=== PATIENT | male | born 1960 | race Caucasian/White ===

== ENCOUNTER 2024-09-09 10:20 | Outpatient (CLI) | payer OTHER, SELFPAY | END 2024-09-09 10:21 | disposition home or self-care (01) | LOC: NFLDREF 09-11 07:34 | PROVIDERS: PCP Family Medicine; Referring Provider Family Medicine; Visit Provider Family Medicine | DX: E78.5 Hyperlipidemia, unspecified (principal); Z12.5 Encounter for screening for malignant neoplasm of prostate | CPT/HCPCS: 80053; 80061; G0103 ==

== ENCOUNTER 2024-10-01 07:05 | Outpatient (CLI) | payer OTHER, SELFPAY ==
--- NOTE | 2024-10-01 09:31 | W.ANESCHARGE ---
Anesthesia Charges Start Date/Time Anesthesia Start Date: 10/01/24 Anesthesia Start Time: 08:16 Stop Date/Time Anesthesia Stop Date: 10/01/24 Anesthesia Stop Time: 09:26 Coding CPT Codes CPT Codes: ANES LWR INTST NDSC NOS - 64087 ([id number]) P3 - PATIENT W/SEVERE SYS DISEASE, QX - CONTROL OPERATOR SVC W/ MD MED DIRECTION, QK - SILVER SPRAY WORKER 2-4 CNCRNT ANES PROC
--- NOTE | 2024-10-01 09:33 | W.ANESCHARGE ---
Anesthesia Charges Start Date/Time Anesthesia Start Date: 10/01/24 Anesthesia Start Time: 08:16 Stop Date/Time Anesthesia Stop Date: 10/01/24 Anesthesia Stop Time: 09:26 Coding CPT Codes CPT Codes: ANES LWR INTST NDSC NOS - 81058 ([id number]) QK - CHARGING CRANE OPERATOR 2-4 CNCRNT ANES PROC, QX - FINISH FILER SVC W/ MED DIRECTION, P3 - PATIENT W/SEVERE SYS DISEASE
== END 2024-10-01 07:06 | disposition home or self-care (01) ==
PROVIDERS: PCP Family Medicine; Visit Provider Surgery
DX: Z12.11 Encounter for screening for malignant neoplasm of colon (principal); D12.3 Benign neoplasm of transverse colon; D12.8 Benign neoplasm of rectum; K57.30 Diverticulosis of large intestine without perforation or abscess without bleeding
CPT/HCPCS: 00811; 45385; 88305; J2704

== ENCOUNTER 2024-10-01 14:50 | Emergency (ER) | payer OTHER, SELFPAY ==
--- OUTSIDE RECORDS SUMMARY | 2024-10-01 14:53 | XMS_ITS | Clinical Summary ---
Author Organization [facility] Address [address] [place] [address] Care Team Providers Care Senior Naval Parachutist Name Role Phone Alberto Rodrigez MD Primary Care Provider [phone] Allergies Active Allergy Reactions Criticality Noted Date Comments Quinine Sulfate Hepatic Dysfunction 10/02/2018 Medications nitroglycerin (NITROSTAT) 0.4 mg sublingual tabletIndicati ons:STEMI involving left circumflex coronary artery (HC) Place 1 tablet under the tongue every 5 minutes if needed. 25 tablet 2 0 Active ezetimibe (ZETIA) 10 mg tabletIndicati ons:Atherogeni c dyslipidemia,E levated lipoprotein(a) Take 1 Tablet (10 mg) by mouth once daily. Further refills at upcoming appointment on August 27, 2024. 90 Tablet 4 Active rosuvastatin (CRESTOR) 40 mg tabletIndicati ons:Mixed hyperlipidemia ,STEMI involving left circumflex coronary artery (HC) Take 1 Tablet (40 mg) by mouth at bedtime. Further refills at upcoming appointment on August 27, 2024 90 Tablet 4 Active clopidogreL (PLAVIX) 75 mg tabletIndicati ons:Coronary artery disease involving nikolski coronary artery of nikolski heart without angina pectoris Take 1 Tablet (75 mg) by mouth once daily. 90 Tablet 3 5 Active lisinopriL (PRINIVIL; ZESTRIL) 2.5 mg tabletIndicati ons:STEMI involving left circumflex coronary artery (HC) Take 1 Tablet (2.5 mg) by mouth once daily. 90 Tablet 3 5 Active lisinopriL (PRINIVIL; ZESTRIL) 2.5 mg tabletIndicati ons:STEMI involving left circumflex coronary artery (HC) Take 1 Tablet (2.5 mg) by mouth once daily. 90 Tablet 3 4 09/11/19 25 Discontin ued(Reord er (E-cancel not sent)) clopidogreL (PLAVIX) 75 mg tabletIndicati ons:Coronary artery disease involving nikolski coronary artery of nikolski heart without angina pectoris Take 1 Tablet (75 mg) by mouth once daily. Further refills at upcoming appointment on 08/27/24. 30 Tablet 5 09/11/19 25 Discontin ued(Reord er (E-cancel not sent)) Active Problems Problem Noted Date Diagnosed Date Elevated lipoprotein(a) - 88.2 (NL < 30) 019 STEMI involving left circumflex coronary artery 06/01/2018 Atherogenic dyslipidemia + High Lpa - 88.2 06/01 Hypertension Encounters Date Type Department Care Team Description 09/30/2024 Telephone [facility] [address] [place] [address] Wyatt Mccormick MD, PhD Medication Management (Re: plavix) 09/11/2024 Telephone [facility] [address] [place] [address] Wyatt Mccormick MD, PhD Refill Request (Clopidogrel (Plavix) & Lisinopril (Prinvil; Zestril)) 08/27/2024 2:45 PM INDUSTRIAL COMMERCIAL GROUNDSKEEPER Orders Only [facility] [address] [place] [address] Lab, [place] Lab 08/27/2024 2:00 PM INDUSTRIAL COMMERCIAL GROUNDSKEEPER Office Visit [facility] [address] [place] [address] Wyatt Mccormick MD, PhD Follow Up (Follow up STEMI involving left circumflex coronary artery- yearly visit ) 08/27/2024 Travel 08/19/2024 10:00 AM INDUSTRIAL COMMERCIAL GROUNDSKEEPER Ancillary Procedure [facility] [address] [place] [address] 08/19/2024 Travel 08/14/2024 Refill [facility] [address] [place] [address] Jerrod Lee MD Refill Request 07/19/2024 Refill [facility] [address] [place] [address] Jerrod Lee MD Refill Request (ezetimibe) from Last 3 Months Immunizations Immunization Administration Dates Next Due COVID-19 vaccine ([employer]-J&J) FLORENCIA FRY Influenza, IIV4 06/21/2017,09/10/2015 MMR 12/16/2015,09/16/2015 Tdap 09/10/2015 Family History Medical History Relation Name Comments Obesity Brother Renal failure/E SRD/HD patient Pneumonia Father Glaucoma Mother Relation Name Status Comments Brother Father Mother Social History Tobacco Use Types Packs/Day Years Used Date Smoking Tobacco: Never Smokeless Tobacco: Never Tobacco Cessation:Counseling Given: Yes Alcohol Use Standard Drinks/Week Comments Yes 0 (1 standard drink = 0.6 oz pure alcohol) noted 08/27/24 - 1-2 glass of wine per week PHQ-2 Answer Date Recorded PHQ-2 Score 0 09/24/2018 Financial Resource Strain Answer Date R ecorded Difficulty of Paying Living Expenses Not on file 07/24/2021 Difficulty of Paying Living Expenses Not on file 07/24/2021 Sex and Gender Information Value Date Recorded Sex Assigned at Male 10/03/2020 8:03 AM INDUSTRIAL COMMERCIAL GROUNDSKEEPER Legal Sex Male 8:32 AM INDUSTRIAL COMMERCIAL GROUNDSKEEPER Gender Identity Male 10/03/2020 8:03 AM INDUSTRIAL COMMERCIAL GROUNDSKEEPER Sexual Orientation Straight 10/03/2020 8: 03 AM INDUSTRIAL COMMERCIAL GROUNDSKEEPER Obstetrics History Last Filed Vital Signs Vital Sign Reading Time Taken Comments Blood Pressure 112/74 08/27/2024 1:56 PM INDUSTRIAL COMMERCIAL GROUNDSKEEPER Pulse 55 08/27/2024 1:56 PM INDUSTRIAL COMMERCIAL GROUNDSKEEPER Temperature 36.5 C (97.7 F) 08/24/2022 10:59 AM INDUSTRIAL COMMERCIAL GROUNDSKEEPER Respiratory Rate 16 12/18/2018 9:08 AM CDT Oxygen Saturation 100% 08/27/2024 1:56 PM INDUSTRIAL COMMERCIAL GROUNDSKEEPER Inhaled Oxygen Concentration - - Weight 77.8 kg (171 lb 9.6 oz) 08/27/2024 1:56 P M INDUSTRIAL COMMERCIAL GROUNDSKEEPER Height 188 cm (6' 2) 04/29/2021 10:20 AM CDT Body Mass Index 22.03 04/29/2021 10:20 AM CDT Plan of Treatment Health Maintenance Due Date Last Done Comments HIV for age 15-65 12/09/1975 Hepatitis C screening for ag e 18-79 1978 Pneumococcal series for age 50+ (1 of 2 - PCV) 12/09/1979 Colonoscopy through age 75 2005 Zoster (shingles) series for age 50+ (1 of 2) 2010 Depression screening for age 12+ 06/22/2019 06/22/20 18, 06/19/2018 RSV vaccine for adults or (1 - Risk 60-74 years 1-dose series) 2020 BMI (ht and wt on same day) for age 18+ 04/29/2022 04/29/2021, 04/28/2020, 06/14/2019, Additional history exists Influenza Vaccine (#1) 2024 06/21/2017, 2015 Tetanus booster 09/10/2025 09/10/2015 Lipids for age 45-75 08/27/2029 08/27/2024, 08/10/2022, 10/19/2021, Additional history exists Tdap Completed 09/10/2015 COVID-19 vaccine series Completed 06/24/20 24, 06/03/2023, 10/03/2020 Procedures Procedure Name Priority Date/Time Associated Diagnosis Comments LIPID PANEL Routine 08/27/2024 2:18 PM INDUSTRIAL COMMERCIAL GROUNDSKEEPER STEMI involving left circumflex coronary artery (HC) Mixed hyperlipidemia ECHO TTE LIMITED WO CONTRAST W COLOR W LTD DOPPLER Routine 08/19/2024 10:42 AM INDUSTRIAL COMMERCIAL GROUNDSKEEPER STEMI involving left circumflex coronary artery (HC) from Last 3 Months Results * LIPID PANEL (08/27/2024 2:18 PM INDUSTRIAL COMMERCIAL GROUNDSKEEPER) Pathologist [facility] CHOLESTEROL, TOTAL 132 <200 mg/dL [facility] HDL CHOLESTEROL 53 > OR = 40 mg/dL [facility] TRIGLYCERIDES 58 <150 mg/dL [facility] LDL-CHOLESTEROL 66 mg/dL (calc) [facility] Comment: Reference range: <100 Desirable range <100 mg/dL for primary prevention; <70 mg/dL for patients with CHD or diabetic patients with > or = 2 CHD risk factors. LDL-C is now calculated using the Lonnie calculation, which is a validated novel method providing better accuracy than the Friedewald equation in the estimation of LDL-C. Kevin SS et al. CHER. 2013;310(19): 7568-4060 (http://education.Sopheon/faq/TWU100) CHOL/HDLC RATIO 2.5 <5.0 (calc) [facility] NON HDL CHOLESTEROL 79 <130 mg/dL (calc) [facility] Comment: For patients with diabetes plus 1 major ASCVD risk factor, treating to a non-HDL-C goal of <100 mg/dL (LDL-C of <70 mg/dL) is considered a therapeutic option. Blood BLOOD SPECIMEN / Unknown 08/27/2024 2:18 PM INDUSTRIAL COMMERCIAL GROUNDSKEEPER 08/27/2024 2:19 PM INDUSTRIAL COMMERCIAL GROUNDSKEEPER Wyatt Mccormick MD, PhD CHEMISTRY Fin al Result Roll20 [facility] [address] [place] [address], [place] [phone] [facility] [address] [place] [address] * ECHO TTE LIMITED WO CONTRAST W COLOR W LTD DOPPLER (08/19/2024 10:42 AM INDUSTRIAL COMMERCIAL GROUNDSKEEPER) Pathologist [facility] EJECTION FRACTION 55 % LVEDD 6.0 cm Anatomical Region Laterality Modality Ultrasound 08/19/2024 10:0 9 AM INDUSTRIAL COMMERCIAL GROUNDSKEEPER Narrative 08/19/2024 11:20 AM INDUSTRIAL COMMERCIAL GROUNDSKEEPER ECHOCARDIOGRAM MARLI DE LA ROSA : 1960 63 years Study Date: 08/19/2024 10:09:26 AM Gender: M BP: 121/75 mmHg Height: 188.00 cm BSA: 2.02 m Weight: 76.00 kg Tech: [facility] Referring MD: JERROD LEE Site: [facility] Reading Location: Mobile OP Patient Location: Outpatient. Procedure: Limited 2D , Color Doppler and Limited Spectral Doppler. Indication for study: STEMI involving left circumflex coronary artery (HC) Cardiac Rhythm: Sinus bradycardia.Study quality: Good. Final Impressions: Limited Echocardiogram performed 1. Mildly increased left ventricular size, normal wall thickness, low normal global systolic function, calculated EF of 55 %. 2. Hypokinesis of inferior and inferolateral wall segments. 3. Right ventricular cavity size is normal, global systolic RV function is normal. 4. The ascending aorta is dilated with a maximal diameter of 4.1 cm. 5. The aortic sinus is dilated with a maximal diameter of 4.6 cm. Comparison Compared to prior exam of 08/21/2023: Imaging quality is improved, LV cavity mildly dilated with low-normal LVEF and similar WMA distribution. Chamber Sizes and Function Mildly increased left ventricular size, normal wall thickness, low normal global systolic function, calculated EF of 55 %. Right ventricular cavity size is normal, global systolic RV function is normal. RV wall thickness is normal. The sinus of Valsalva is dilated. The ascending aorta is dilated. Valves, RV Pressures and Diastolic Function The aortic valve is normal in structure and trileaflet, no stenosis and no regurgitation. The mitral valve is normal in structure, mild mitral regurgitation. MEASUREMENTS AND CALCULATIONS 2-D Measurements and LV Function: LVID (d) 6.0 cm Planimetered EF 55 % LVID (s) 4.2 cm LV FS% (2D) 31 % IVS (d) 0.8 cm HR 45 bpm LVPW (d) 0.9 cm Ao Sinus 4.6 cm Asc Ao 4.1 cm . This study was interpreted by an [facility] accredited facility. Final Procedure Note Carmelo Swanson MD - 08/19/2024 ECHOCARDIOGRAM MARLI DE LA ROSA : 1960 63 years Study Date: 08/19/2024 10:09:26 AM Gender: M BP: 121/75 mmHg Height: 188.00 cm BSA: 2.02 m Weight: 76.00 kg Tech: [facility] Referring MD: JERROD LEE Site: [facility] Reading Location: Mobile OP Patient Location: Outpatient. Procedure: Limited 2D , Color Doppler and Limited Spectral Doppler. Indication for study: STEMI involving left circumflex coronary artery(HC) Cardiac Rhythm: Sinus bradycardia.Study quality: Good. Final Impressions: Limited Echocardiogram performed 1. Mildly increased left ventricular size, normal wall thickness, lownormal global systolic function, calculated EF of 55 %. 2. Hypokinesis of inferior and inferolateral wall segments. 3. Right ventricular cavity size is normal, global systolic RV functionis normal. 4. The ascending aorta is dilated with a maximal diameter of 4.1 cm. 5. The aortic sinus is dilated with a maximal diameter of 4.6 cm. Comparison Compared to prior exam of 08/21/2023: Imaging quality is improved, LV cavity mildly dilated with low-normal LVEFand similar WMA distribution. Chamber Sizes and Function Mildly increased left ventricular size, normal wall thickness, low normalglobal systolic function, calculated EF of 55 %. Right ventricular cavitysize is normal, global systolic RV function is normal. RV wall thicknessis normal. The sinus of Valsalva is dilated. The ascending aorta isdilated. Valves, RV Pressures and Diastolic Function The aortic valve is normal in structure and trileaflet, no stenosis and noregurgitation. The mitral valve is normal in structure, mild mitralregurgitation. MEASUREMENTS AND CALCULATIONS 2-D Measurements and LV Function: LVID (d) 6.0 cm Planimetered EF 55 % LVID (s) 4.2 cm LV FS% (2D) 31 % IVS (d) 0.8 cm HR 45 bpm LVPW (d) 0.9 cm Ao Sinus 4.6 cm Asc Ao 4.1 cm . This study was interpreted by an [facility] accredited facility. Final us Jerrod Lee MD ECHO ORD Final Result from Last 3 Months Insurance [employer] Advance Directives * Full Code (Latest Code Status on File) Date Activated Date Inactivated Comments 06/01/2018 11:23 AM 06/03/2018 2:59 PM Care Teams Senior Naval Parachutist Relationship Specialty Start Date End Date Alberto Rodrigez MD [address] [place] [address] PCP - General Family Practice 06/01/18
--- OUTSIDE RECORDS SUMMARY | 2024-10-01 14:53 | XMS_ITS | Clinical Summary ---
Author Organization [facility] Address [address] [place] [address] Care Team Providers Care Social Media Executive Name Role Phone Elsewhere, Pcp Primary Care Provider Unavailabl e Source Comments Patient records contain information from all sites at [facility]. For routine questions regarding patient records, call [phone] during business hours, M-F 8:00 AM - 5:00 PM Central Time. Record requests for emergency care only can be directed to [phone] at any time.[facility] Allergies Active Allergy Reactions Criticality Noted Date Comments Quinine Sulfate Other (see comments),Hepatic Failure High 12/22/2001 Hepatic failure Tetanus Vaccines And Toxoid Other (see comments) 07/11/2023 Tetanus vaccine Medications nitroglycerin (NITROSTAT) 0.[address] 1 tablet under the tongue every 5 minutes if needed. 05/26/2020 Active MULTIVITAMIN ORAL Take 2 tablets by mouth daily. Takes 2 gummies daily Active ezetimibe (ZETIA) 10 mg tablet Take 1 tablet by mouth daily. 08/30/2022 Active lisinopriL (PRINIVIL,ZESTR [place]) 2.5 mg tablet Take 1 tablet by mouth daily. 08/30/2022 Active rosuvastatin (CRESTOR) 40 mg tablet Take 1 tablet by mouth at bedtime. 08/30/2022 Active clopidogreL (PLAVIX) 75 mg tablet Take 1 tablet (75 mg total) by mouth daily. 10/18/2023 Active Active Problems Problem Noted Date Diagnosed Date Hypertensive Heart Disease Without Heart Failure 09/04/2023 Clonic Hemifacial Spasm Left 08/30/2023 Dyslipidemia NOS 06/01/2018 ST Elevation Myocardial Infa rction Involving Left Circumflex Coronary Artery 06/01/2018 Family History Medical History Relation Name Comments Kidney disease Brother López De La Rosa Born with one kidney, then that failed at age 45ish, dialysis for 15 years up until in 2018 Obesity Brother López De La Rosa Sleep apnea Brother López De La Rosa Other cancer Father Victor M De La Rosa Bladder cancer Coronary artery disease Father's Brother 1 Frank yip Coronary artery disease Father's Brother 2 Travis Brian glien Arthritis Mother Naina Zavalaine Ringlien Hyperlipidemia Mother Naina Zavalaine Ringlien Hypertension Mother Naina Zavalaine Ringlien Thyroid disease Mother Naina Zavalaine Ringlien ADD Son Micky De La Rosa Relation Name Status Comments Brother López De La Rosa Father Victor M De La Rosa Father's Brother 1 Frank De La Rosa Father's Brother 2 Travis De La Rosa Mother Naina De La Rosa Son Micky De La Rosa Social History Tobacco Use Types Packs/Day Years Used Date Smoking Tobacco: Never Passive Smoke Exposure: Never Smokeless Tobacco: Never Tobacco Cessation:Counseling Given: Not Answered Alcohol Use Standard Drinks/Week Comments Yes 6 (1 standard drink = 0.6 oz pur e alcohol) [facility] Utilities Answer Date Recorded In the past 12 months has [facility] Vestiage, gas, oil, or water Anctu threatened to shut off services in your home? No 10/10/2023 Humiliation, Afraid, Rape, and Kick questionnair e Answer Date Recorded Within the last year, have y ou been afraid of your partner or ex-partner? No 10/10/2023 Within the last year, have y ou been humiliated or emotionally abused in other ways by your partner or ex-partner? No Within the last year, have y ou been kicked, hit, slapped, or otherwise physically hurt by your partner or ex-partner? No 10/10/2023 Within the last year, have y ou been raped or forced to have any kind of sexual activity by your partner or ex-partner? No 10/10/2023 PHQ-2 Answer Date Recorded PHQ-2 Score 0 07/12/2023 Exercise Vital Sign Answer Date Recorde d On average, how many days pe r week do you engage in moderate to strenuous exercise (like a brisk walk)? 5 days 07/09/2023 On average, how many minutes do you engage in exercise at this level? 40 min 07/09/2023 Hunger Vital Sign Answer Date Recorded Within the past 12 months, y ou worried that your food would run out before you got the money to buy more. Never true 10/10/19 24 Within the past 12 months, t he food you bought just didn't last and you didn't have money to get more. Never true 10/10/2023 PRAPARE - Transportation Answer Date Re corded In the past 12 months, has l ack of transportation kept you from medical appointments or from getting medications? No 09/21 In the past 12 months, has l ack of transportation kept you from meetings, work, or from getting things needed for daily living? No 10/10/2023 Depression Answer Date Recor ded PHQ-9 Total Score (max 27) 0 07/12 Nutrition Answer Date Recorded Nutrition: EVOO Fat Source Unknown 07/09 On average, how many serving s of fruits and vegetables do you eat per day (serving size is equal to 1 cup or approximately the size of a tennis ball)? 3-5 07/09/2023 Dental Answer Date Recorded Dental: Regular Dentist Yes 07/09/20 Employment Answer Date Recorded Employment status Employed and actively working without restrictions 07/09/2023 Housing Stability Answer Date Recorded What is your living situation today? I have a [facility] place to live 10/10/2023 Sex and Gender Information Value Date Recorded Sex Assigned at Male 07/09/2023 11:14 AM REGIONAL EDUCATION COORDINATOR Legal Sex Male 1:30 PM CDT Gender Identity Male 07/09/2023 11:14 AM REGIONAL EDUCATION COORDINATOR Sexual Orientation Straight 07/09/2023 11 :14 AM REGIONAL EDUCATION COORDINATOR Last Filed Vital Signs Vital Sign Reading Time Taken Comments Blood Pressure 120/65 10/12/2023 7:45 AM CDT Pulse 57 10/12/2023 7:45 AM CDT Temperature 36.8 C (98.2 F) 10/12/2023 7:45 AM CDT Respiratory Rate 14 10/12/2023 7:45 AM CDT Oxygen Saturation 96% 10/12/2023 7:45 AM CDT Inhaled Oxygen Concentration - - Weight 77.3 kg (170 lb 6.7 oz) 10/11/2023 9:24 A M CDT Height 190.5 cm (6' 3) 10/10/2023 6:23 AM CDT Body Mass Index 21.3 10/10/2023 6:23 AM CDT Plan of Treatment Health Maintenance Due Date Last Done Comments CT Colonography 1960 Cologuard 1960 Colonoscopy 1960 Colorectal Cancer Screening 1960 FIT 1960 HIV Screening 1960 Hepatitis C Screening 1960 Pneumococcal vaccine (50+ years) (1 of 1 - PCV) 2010 Zoster Vaccines (1 of 2) 2010 Creatinine Level (Kidney Function Test) 08/10/2023 08/10/2022, 10/19/2021, 04/16/2021, Additional history exists Potassium Level 08/10/2023 08/10/2022, 03/2 03/2022, 04/16/2021, Additional history exists COVID-19 Vaccine ( season) 2024 06/03/2023, 06/15/2022, 06/28/2021, Additional history exists Influenza Vaccine (#1) 2024 , 06/15/2022, 06/22/2021, Additional history exists Depression Screening (Annual PHQ-2) 07/24/2024 Office Visit for Blood Pressure Check / Re-check 10/04/2024 10/05/2023 Sodium Level 10/09/2024 10/10/2023, 07/24, 10/19/2021, Additional history exists Fasting Glucose for Diabetes Screening 10/09/2026 10/10/2023, 08/10/2022, 10/19/2021, Additional history exists Lipid (Cholesterol) Screening 08/10/2027 08/10/2022, 10/19/2021, 04/16/2021, Additional history exists IPV Vaccines Aged Out No longer eligi ble based on patient's age to complete this topic Medical Devices Implanted Type Area Sales Support Advisor Device Identifier Shelf Expiration Date Model / Serial / Lot Cardiac Stent Cardiac Stent Coronary Description:1 stent in coron abbi artery Hardware E.G. Pins/Screws/R ods Hardware e.g. pins/screws /rods Right: Knee [place] [employer] T[employer] 1x1 - [id number] Implanted:Qty : 1 on 10/10/2023 by Carmelo Arora M.D. at [facility] Hardware e.g. pins/screws /rods peerTransfer 32-448 / / Plt Mtr Cmf Str 2h 12 - [id number] Implanted:Qty : 3 on 10/10/2023 by Carmelo Arora M.D. at [facility] Hardware e.g. pins/screws /rods Left: Cranial Depuy Synthes 503.06 2 / / Scrw Ti Mtr Slv 1.55x2.55x4 - [id number] Implanted:Qty : 6 on 10/10/2023 by Carmelo Arora M.D. at [facility] Hardware e.g. pins/screws /rods Left: Cranial Depuy Synthes 503.10 4.01 / / Grft Drg 4x4 - [id number] Implanted:Qty : 1 on 10/10/2023 by Carmelo Arora M.D. at [facility] Mesh or Patch Guevara 04/05/2028 [id number] / / [id number] Procedures Procedure Name Priority Date/Time Associated Diagnosis Comments GLUCOSE, WHOLE BLOOD STAT 10/10/2023 9:21 AM CDT SODIUM, B STAT 10/10/2023 9:21 AM CDT from Last 3 Months or Most Recently Relevant to Health Maintenance Results * Sodium, B (10/10/2023 9:21 AM CDT) Sodium, B 141 135 - 145 mmol/L 10/10/2023 9:24 AM CDT STMA Blood (Blood, Arterial Line) 10/10/2023 9:21 AM CDT 10/10/2023 9:21 AM CDT us Nancy Pineda M.D. LAB BLOOD NON ADD-ON Final Re sult [facility] [address] [place] [address], [facility] [address] [place] [address] * Glucose, Whole Blood (10/10/2023 9:21 AM CDT) Glucose 118 70 - 140 mg/dL 10/10/2023 9:24 AM CDT STMA Blood (Blood, Arterial Line) 10/10/2023 9:21 AM CDT 10/10/2023 9:21 AM CDT Nancy Pineda M.D. LAB BLOOD ADD-ON Final Result Performing Organization Address City/[facility] Co de Phone Number [facility] [address] [place] [address], [facility] [address] [place] [address] from Last 3 Months or Most Recently Relevant to Health Maintenance Insurance [facility] EM[employer]OYEE Advance Directives For more information, please contact: [phone] * Full Code (Latest Code Status on File) Date Activated Date Inactivated Comments 10/10/2023 12:56 PM 10/12/2023 2:05 PM Question Answer Comments Full Code: Not Discussed Due to: Patient not available * Full Code Date Activated Date Inactivated Comments 10/10/2023 6:37 AM 10/10/2023 12:56 PM Question Answer Comments Full Code: Not Discussed Due to: Patient not available Care Teams Social Media Executive Relationship Specialty Start Date End Date Elsewhere, Pcp PCP - General Internal Medicine 10/03/23
[2024-10-01 14:56] VITALS: BP 121/67; PULSE 76; RESP 18; TEMP 39.1; O2SAT 96; BMI 21.6
--- NOTE | 2024-10-01 15:00 | ED.GENADULT ---
HPI - General Adult General Chief complaint: Fever Stated complaint: Post-Colonoscopy issues Time Seen by Provider: 10/01/24 14:51 History of Present Illness HPI narrative: Patient presents to the emergency department complaining of a fever. Patient had a colonoscopy this morning at about 0815 and he was resting at home after when he noticed he had a fever . Patient had the chills and minor joint aches. Fever was 102.4 at home. He returned to the ER per his instructions to do so. 63-year-old man presenting to the emergency department with concern of fever and chills following colonoscopy this morning. I do review records of colonoscopy this morning, biopsies were taken. No complications noted. They note that colon was ?curvy?. Also recollecting brother with post colonoscopy complications apparently with splenic bleed. Was feeling well about 20 minutes after procedure. Has no abdominal pain now. Not feeling lightheaded. Adjust this afternoon began to feel chilled was shaking briefly. Went out into the sun and was feeling better in that regard but because fever mentioned as a concern postprocedural, presenting to the emergency department. They did measure temperature of 102.4?. On arrival here 102.4 temporal. Related Data Home Medications ?Medication ?Instructions ?Recorded ?Confirmed clopidogrel 75 mg tablet (Plavix) 75 mg PO QDAY 10/24/23 10/01/24 ezetimibe 10 mg tablet 10 mg PO QDAY 10/24/23 10/01/24 lisinopril 2.5 mg tablet 2.5 mg PO DAILY 10/24/23 10/01/24 multivitamin 1 tab PO QDAY 10/24/23 10/01/24 nitroglycerin 0.4 mg sublingual 0.4 mg sublingual Q5M PRN 10/24/23 10/01/24 tablet rosuvastatin 40 mg tablet 40 mg PO DAILY 10/24/23 10/01/24 Previous Rx's ?Medication ?Instructions ?Recorded peg 3350-electrolytes 236 240 ml PO Q10M #4,000 mL 10/24/23 gram-22.74 gram-6.74 gram-5.86 gram solution (Golytely) peg 3350-electrolytes 236 240 ml PO Q10M #4,000 mL 09/11/24 gram-22.74 gram-6.74 gram-5.86 gram solution (Golytely) Allergies Allergy/AdvReac Type Severity Reaction Status Date / Time quinine Allergy Severe Elevated Verified 10/01/24 15:03 Liver Enzymes & Low BP Review of Systems Status of ROS: Reports: 6 or more systems reviewed and unremarkable except as noted in History and below [facility] Medical History Hemifacial spasm ?G51.39 - Clonic hemifacial spasm, unspecified (ICD-10) Colon polyp (05/09/13) ?K63.5 - Polyp of colon (ICD-10) History of ST elevation myocardial infarction (STEMI) ?I25.2 - Old myocardial infarction (ICD-10) Pesticide exposure (1977) ?Z77.098 - Contact with and (suspected) exposure to other hazardous, chiefly nonmedicinal, chemicals (ICD-10) Surgical History History of arthroscopy of right knee (09/20/21) ?Z98.890 - Other specified postprocedural states (ICD-10) History of coronary artery stent placement (06/01/18) ?Z95.5 - Presence of coronary angioplasty implant and graft (ICD-10) Salivary gland obstruction ?K11.8 - Other diseases of salivary glands (ICD-10) Family History Brother Myocardial infarction, Onset Age: 59 Renal failure Coronary artery disease Father Bladder cancer Pulmonary embolism DVT (deep venous thrombosis) Uncle Coronary artery disease Social History What is your current living situation?: I presently have a place to live Problems where you live: no known problems In the past 12 months, utilities in danger of being shut off: no In past 12 months, lack of transportation kept you from medical appts, meetings, work, or getting things needed for daily living: no In the past 12 mos, have been you worried that your food would run out before you had money to buy more?: never true In the past 12 mos, the food you bought just didn't last and you didn't have money to buy more?: never true How often does anyone, including family, friends and others, physically hurt you: never How often does anyone, including family, friends and others, insult or talk down to you: never How often does anyone, including family, friends and others, threaten you with harm: never How often does anyone, including family, friends and others, scream or curse at you: never Exam Narrative: Exam Narrative: Pleasant. NAD. Breathing easily. Cranial nerves 2-12 intact. Skin is warm and dry. Is well-perfused peripherally. Oropharynx is moist and not erythematous. Lungs are clear. Heart in regular rate and rhythm without murmur rub or gallop. Abdomen with present bowel sounds. Flat and nontender maybe with particularly deep palpation slightly uncomfortable in the right upper abdomen. Certainly no peritoneal signs. Const: Vital Signs, click to edit/add: Vital Signs - 24 hr 10/01/24 15:40 10/01/24 16:46 10/01/24 17:08 Temperature 101.9 F H 100.4 F H 100.4 F H Documenting provider has reviewed patient's vital signs: yes Course Vital Signs Vital signs: Initial Vital Signs Temperature 102.4 F H 10/01/24 14:56 Temperature Source Temporal Artery Scan 10/01/24 14:56 Pulse Rate 76 10/01/24 14:56 Pulse Rhythm Regular 10/01/24 14:56 Pulse Strength 3+ Normal 10/01/24 14:56 Respiratory Rate 18 10/01/24 14:56 Blood Pressure 121/67 10/01/24 14:56 Blood Pressure Mean 85 10/01/24 14:56 Blood Pressure Position Sitting 10/01/24 14:56 Pulse Oximetry 96 10/01/24 14:56 Oxygen Delivery Method Room Air 10/01/24 14:56 Vital Signs Temperature 102.4 F H 10/01/24 14:56 Pulse Rate 76 10/01/24 14:56 Respiratory Rate 18 10/01/24 14:56 Blood Pressure 121/67 10/01/24 14:56 Pulse Oximetry 96 10/01/24 14:56 Oxygen Delivery Method Room Air 10/01/24 14:56 Temperature 100.4 F H 10/01/24 17:08 Pulse Rate 76 10/01/24 14:56 Respiratory Rate 18 10/01/24 14:56 Blood Pressure 121/67 10/01/24 14:56 Pulse Oximetry 96 10/01/24 14:56 Oxygen Delivery Method Room Air 10/01/24 14:56 Medications Administered Medications: Discontinued Medications Generic Name Dose Route Start Last Admin Trade Name Matt PRN Reason Stop Dose Admin Acetaminophen 1,000 mg 10/01/24 15:25 10/01/24 15:40 Acetaminophen 500 Mg Tablet PO 10/01/24 15:26 1,000 mg ONCE ONE Administration Medical Decision Making MDM Narrative Medical decision making narrative: Does not otherwise appear to have symptoms related to colonoscopy. If had not had colonoscopy would consider this an influenza like illness or fever. Has no other symptoms other than that related to fever. Swab for COVID, influenza, RSV has been collected. Would treat with acetaminophen at this point. Pending results of this swab at this time. Recheck temperature oral. Without abdominal pain I think unlikely perforation but I suppose this is possible. no respiratory symptoms. Did discuss this case with surgeon who did colonoscopy. Did apparently have to fulgurate an area of biopsy. There was question of potential aspiration as well. Requesting chest x-ray and abdominal x-ray looking Evidence of aspiration or pneumothorax or subdiaphragmatic air. one-view chest and upright abdomen look to be WNL by my independent read. Per my conversation with surgeon will be monitoring closely. Temperature is still elevated near discharge but is improved. labs with minimally elevated white count perhaps not unexpected. Otherwise feels quite well. Appears safe for discharge. Stable vitals otherwise. See patient discharge plan for further discussion Please enjoy your evening and meal. Can take up to a 1000 mg of acetaminophen per dose. If postprocedural instructions are okay with it, could take up to 800 mg of ibuprofen per dose as well. Return for persistent and increasing abdominal pain particularly accompanied by fever, repeated vomiting. Medical Records Medical records reviewed: Yes I reviewed the patient's medical records Lab Data Lab results reviewed: Yes I reviewed the patient's lab results Labs: Lab Results 10/01/24 10/01/24 Range/Units 15:10 16:21 WBC 12.08 H (4.50-11.00) K/uL RBC 4.49 (4.30-5.90) m/uL Hgb 13.5 (13.5-17.5) gm/dL Hct 40.5 (37.0-53.0) % MCV 90 (80-100) fL MCH 30 (26-34) pg MCHC 33 (32-36) gm/dL RDW Coeff of Tootie 12.7 (11.5-15.5) % Plt Count 122 L (140-440) K/uL Neut % (Auto) 91.6 H (42.0-72.0) % Lymph % (Auto) 3.0 L (20-44) % [place] % (Auto) 5.0 (0.0-11.0) % Eos % (Auto) 0.1 (0.0-7.0) % Baso % (Auto) 0.1 (0.0-3.0) % Neut # (Auto) 11.10 H (1.7-7.0) K/uL Lymph # (Auto) 0.40 L (0.90-2.90) K/uL Granville # (Auto) 0.60 (0.00-0.90) K/UL Eos # (Auto) 0.00 (0.00-0.50) K/uL Baso # (Auto) 0.00 (0.00-0.30) K/uL Abs Immat Gran (auto) 0.00 (0.00-0.30) K/uL Imm/Tot Granulo (auto) 0.2 % Sodium 137 (135-149) mmol/L Potassium 3.8 (3.6-5.1) mmol/L Chloride 102 (96-114) mmol/L Carbon Dioxide 26 (20-32) mmol/L Anion Gap 9 (7-15) mEq/L BUN 14 (7-30) mg/dL Creatinine 0.6 (0.5-1.5) mg/dL Estimated Creat Clear 81.50 Estimated GFR 108 ml/min Glucose 117 H (60-115) mg/dL Calcium 8.8 (8.4-10.6) mg/dL C-Reactive Protein < 0.5 L (0.5-1.0) mg/dL SARS-CoV-2 (PCR) Negative SARS-CoV-2 (Negative) Influenza Type A (PCR) Negative PCR FLU A (Negative) Influenza Type B (PCR) Negative PCR FLU B (Negative) RSV (PCR) Negative PCR RSV (Negative) Discharge Plan Discharge Clinical Impression: Fever Patient Disposition: Home w/ Parent or Adult Condition: Improved Additional Instructions: Please enjoy your evening and meal. Can take up to a 1000 mg of acetaminophen per dose. If postprocedural instructions are okay with it, could take up to 800 mg of ibuprofen per dose as well. Return for persistent and increasing abdominal pain particularly accompanied by fever, repeated vomiting. Prescriptions: No Action peg 3350-electrolytes [Golytely] 236-22.74-6.74 -5.86 gram recon soln 240 ml PO Q10M Qty: 4000 0RF Rx Instructions: until fecal effluent is clear rosuvastatin 40 mg tablet 40 mg PO DAILY ezetimibe 10 mg tablet 10 mg PO QDAY nitroglycerin 0.4 mg tablet, sublingual 0.4 mg sublingual Q5M PRN lisinopril 2.5 mg tablet 2.5 mg PO DAILY clopidogrel [Plavix] 75 mg tablet 75 mg PO QDAY multivitamin Tablet 1 tab PO QDAY peg 3350-electrolytes [Golytely] 236-22.74-6.74 -5.86 gram recon soln 240 ml PO Q10M Qty: 4000 0RF Rx Instructions: until fecal effluent is clear Follow Up/Referrals: Alberto Rodrigez MD [Primary Care Provider] - Stand Alone Forms: [employer] Info Instructions
--- OUTSIDE RECORDS SUMMARY | 2024-10-01 15:30 | XMS_ITS | Clinical Summary ---
Author Organization [facility] Address [address] [place] [address] Care Team Providers Care Residential Child Care Counselor Name Role Phone Elsewhere, Pcp Primary Care Provider Unavailabl e Source Comments Patient records contain information from all sites at [facility]. For routine questions regarding patient records, call [phone] during business hours, M-F 8:00 AM - 5:00 PM Central Time. Record requests for emergency care only can be directed to [phone] at any time.[facility] Allergies Active Allergy Reactions Criticality Noted Date [...] drink = 0.6 oz pur e alcohol) [facility] Utilities Answer Date Recorded In the past 12 months has [facility] [employer], gas, oil, or water [employer] threatened to shut off services in your [...] your living situation today? 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 Pins/Screws/R ods Hardware e.g. pins/screws /rods Right: Knee Savannah Surg Tfln 1x1 - [id number] Implanted:Qty : 1 on 10/10/2023 by Carmelo Arora M.D. at [facility] Hardware e.g. pins/screws /rods Fanbouts 32-448 / / Plt Mtr Cmf Str 2h 12 - [id number] Implanted:Qty : 3 on 10/10/2023 by Carmelo Arora M.D. at [facility] Hardware e.g. pins/screws /rods Left: Cranial Depuy Synthes 503.06 2 / / Scrw Ti Mtr Slv 1.55x2.55x4 - [id number] Implanted:Qty : 6 on 10/10/2023 by Carmelo Arora M.D. at [facility] Hardware e.g. pins/screws /rods Left: Cranial Depuy Synthes 503.10 4.01 / / Grft Drg 4x4 - [id number] Implanted:Qty : 1 on 10/10/2023 by Carmelo Arora M.D. at [facility] Mesh or Patch Guevara 04/05/2028 [id number] / / [id number] Procedures Procedure Name Priority Date/Time Associated Diagnosis [...] LAB BLOOD NON ADD-ON Final Re sult [facility] [address] [place] [address], [facility] [address] [place] [address] * Glucose, Whole Blood (10/10/2023 9:21 AM CDT) Glucose 118 70 - 140 mg/dL 10/10/2023 9:24 AM CDT STMA Blood (Blood, Arterial Line) 10/10/2023 9:21 AM CDT 10/10/2023 9:21 AM CDT Nancy Pineda M.D. LAB BLOOD ADD-ON Final Result Performing Organization Address City/[facility] Co de Phone Number [facility] [address] [place] [address], [facility] [address] [place] [address] from Last 3 Months or Most Recently Relevant to Health Maintenance Insurance [employer] Advance Directives For more information, please contact: [phone] * Full Code (Latest Code Status on File) Date Activated Date Inactivated Comments 10/10/2023 12:56 PM 10/12/2023 2:05 PM Question Answer Comments Full Code: Not Discussed Due to: Patient not available * Full Code Date Activated Date Inactivated Comments 10/10/2023 6:37 AM 10/10/2023 12:56 PM Question Answer Comments Full Code: Not Discussed Due to: Patient not available Care Teams Residential Child Care Counselor Relationship Specialty Start Date End Date Elsewhere, Pcp PCP - General Internal Medicine 10/03/23
[2024-10-01 15:40] VITALS: TEMP 38.8
[2024-10-01] MEDS: ACETAMINOPHEN 500 MG TABLET 1000 MG PO (15:40)
[2024-10-01 15:59] LABS: PCR FLU A Negative PCR FLU A (Negative); PCR FLU B Negative PCR FLU B (Negative); PCR RSV Negative PCR RSV (Negative); SARS PCR* Negative SARS-CoV-2 (Negative)
[2024-10-01 16:27] LABS: Basophils Percent Auto 0.1 % (0.0-3.0); Eosinophils Percent Auto 0.1 % (0.0-7.0); Hematocrit 40.5 % (37.0-53.0); Hemoglobin* 13.5 gm/dL (13.5-17.5); Immature Granulocytes Pct Auto 0.2 %; Mean Corpuscular HGB Conc 33 gm/dL (32-36); Mean Corpuscular Hemoglobin 30 pg (26-34); Mean Corpuscular Volume 90 fL (80-100); Neutrophils Percent Auto 91.6 % (42.0-72.0); Platelet Count* 122 K/uL (140-440); RDW Coefficient of Variation % 12.7 % (11.5-15.5); Red Blood Count 4.49 m/uL (4.30-5.90); White Blood Count* 12.08 K/uL (4.50-11.00)
[2024-10-01 16:36] LABS: Slide Review Reflex No
[2024-10-01 16:46] VITALS: TEMP 38
[2024-10-01 16:46] LABS: Chloride* 102 mmol/L (96-114); Sodium* 137 mmol/L (135-149)
[2024-10-01 16:47] LABS: Potassium* 3.8 mmol/L (3.6-5.1)
[2024-10-01 16:49] LABS: Blood Urea Nitrogen* 14 mg/dL (7-30); Creatinine* 0.6 mg/dL (0.5-1.5); Estimated Glomerular Filt Rate 108 ml/min
[2024-10-01 16:50] LABS: Anion Gap 9 mEq/L (7-15); Calcium* 8.8 mg/dL (8.4-10.6); Carbon Dioxide* 26 mmol/L (20-32); Glucose* 117 mg/dL (60-115)
[2024-10-01 16:53] LABS: C Reactive Protein* < 0.5 mg/dL (0.5-1.0)
[2024-10-01 17:08] VITALS: TEMP 38
== END 2024-10-01 17:41 | disposition home or self-care (01) ==
PROVIDERS: Emergency Provider Family Medicine; PCP Family Medicine
DX: R50.9 Fever, unspecified (principal)
CPT/HCPCS: 36415; 71045; 74018; 80048; 85025; 86140; 87631; 99283; 99284; A9270